=== PATIENT | male | born 1940 | race Caucasian/White ===

== ENCOUNTER 2022-01-26 13:40 | Inpatient (IN) | payer MEDICARE, OTHER ==
[~2022-01-26] VITALS: Ht 170.2 cm; Wt 83.6 kg
[~2022-01-26 13:40] MED LIST: 8 HOUR650 MG PO; COUMADIN2 MG PO; COUMADIN4 MG PO; COZAAR100 MG PO; GLIPIZIDE ER2.5 MG PO; LOVAZA1 GM PO; NEURONTIN400 MG PO; VITAMIN D31000 UNI1 PO
[2022-01-26 14:35] LABS: BASOPHIL 0.4 % (0-2); EOSINOPHIL 0 % (0-7); HCT 42.7 % (42.0-52.0); HGB 15.4 g/dl (13.2-18.0); LYMPHOCYTE 13.5 % (15-48); MCH 32.3 pg (25.0-31.0); MCHC 36.1 g/dL (32.0-36.0); MCV 89.5 fL (78.0-100.0); MONOCYTE 14.5 % (0-12); MPV 11.3 fL (6.0-9.5); NEUTROPHIL 70.8 % (41-80); NRBC 0; PLT 158 K/uL (150-400); RBC 4.77 M/uL (4.70-6.00); RDW 11.9 % (11.5-14.0); WBC 8.4 K/uL (4.0-10.5)
[2022-01-26 14:53] LABS: INR 1.96 (0.9-1.2); PROTHROMBIN TIME 21.5 SECONDS (11.8-13.4); PTT 29.6 SECONDS (24.4-34.7)
[2022-01-26 15:01] LABS: CKMB 6.4 ng/mL (0.0-3.6)
[2022-01-26 15:04] LABS: BILIRUBIN - TOTAL 0.8 mg/dL (0.2-1.0); BUN/CREAT RATIO (CALC) 39.1 RATIO; CREATININE 1.74 mg/dL (0.67-1.17); GLOBULIN (CALCULATION) 4.2 g/dL; POTASSIUM 3.8 mmol/L (3.5-5.1); TOTAL PROTEIN 7.2 g/dL (6.4-8.2)
[2022-01-26 15:15] LABS: LACTIC ACID 3.6 mmol/L (0.4-1.9)
[2022-01-26 17:56] LABS: BILIRUBIN NEGATIVE (NEGATIVE); BLOOD 1+ Ery/uL (NEGATIVE); CLARITY CLEAR (CLEAR); COLOR YELLOW (YELLOW); GLUCOSE (U) 2+ mg/dL (NORMAL); LEUKOCYTES NEGATIVE Leu/uL (NEGATIVE); NITRITE NEGATIVE (NEGATIVE); PROTEIN NEGATIVE (NEGATIVE); SPECIFIC GRAVITY 1.015 (1.001-1.030); UROBILINOGEN 0.2 mg/dL (0.2-1.0); pH 5.5 (5.0-9.0)
[2022-01-26 17:57] LABS: AMORPHOUS URATES CRYSTALS MODERATE; URINARY WBC RARE
[2022-01-26] MEDS ORDERED: SYNTHROID25 MCG PO (18:38)
[2022-01-26] MEDS ORDERED: NAMENDA 10MG TA10 MG PO (18:38)
[2022-01-26] MEDS ORDERED: WARFARIN SODIUM4 MG PO ×2 (18:43→18:56)
[2022-01-26] MEDS ORDERED: WARFARIN SODIUM2 MG PO ×2 (18:43→18:57)
[2022-01-26] MEDS ORDERED: UNISOM25 MG PO (18:44)
[2022-01-26] MEDS ORDERED: FOLIC ACID1 MG PO (18:46)
[2022-01-26] MEDS ORDERED: FISH OIL 1,2001 EACH PO (18:46)
[2022-01-26] MEDS ORDERED: LYRICA25 MG PO (18:47)
[2022-01-26] MEDS ORDERED: CYMBALTA 30MG C30 MG PO (18:49)
[2022-01-26] MEDS ORDERED: FLEXERIL5 MG PO (18:49)
== END 2022-01-27 01:00 | disposition other institution (70) | DRG 871 ==
LOC: FER 13:40 → FTCU 16:06
PROVIDERS: Emergency Medicine; ADMIT Internal Medicine
PROC: 30233K1 Transfusion of Nonautologous Frozen Plasma into Peripheral Vein, Percutaneous Approach (ICD-10-PCS; principal; 2022-01-26)
PROC: 3E03329 Introduction of Other Anti-infective into Peripheral Vein, Percutaneous Approach (ICD-10-PCS; 2022-01-26)
DX: A41.9 Sepsis, unspecified organism (principal); K55.039 Acute (reversible) ischemia of large intestine, extent unspecified; G93.41 Metabolic encephalopathy; K43.0 Incisional hernia with obstruction, without gangrene; N17.9 Acute kidney failure, unspecified; E87.2 Acidosis; E87.1 Hypo-osmolality and hyponatremia; R65.20 Severe sepsis without septic shock; E11.65 Type 2 diabetes mellitus with hyperglycemia; Z20.822 Contact with and (suspected) exposure to COVID-19; F03.90 Unspecified dementia, unspecified severity, without behavioral disturbance, psychotic disturbance, mood disturbance, and anxiety; E11.22 Type 2 diabetes mellitus with diabetic chronic kidney disease; N18.9 Chronic kidney disease, unspecified; E11.40 Type 2 diabetes mellitus with diabetic neuropathy, unspecified; E86.0 Dehydration; F32.A Depression, unspecified; E03.9 Hypothyroidism, unspecified; Z87.891 Personal history of nicotine dependence; Z86.718 Personal history of other venous thrombosis and embolism; Z86.711 Personal history of pulmonary embolism; Z85.51 Personal history of malignant neoplasm of bladder; Z98.890 Other specified postprocedural states; Z88.5 Allergy status to narcotic agent; Z79.84 Long term (current) use of oral hypoglycemic drugs; Z79.01 Long term (current) use of anticoagulants; Z79.899 Other long term (current) drug therapy; Z90.49 Acquired absence of other specified parts of digestive tract
CPT/HCPCS: 36415; 36430; 36600; 71045; 80053; 81001; 82553; 82803; 82962; 83605; 83735; 83880; 84443; 84484; 85025; 85610; 85730; 87040; 93005; J2543; J7030; J7050; P9017; U0002